=== PATIENT | male | born 1980 | race Caucasian/White ===

== ENCOUNTER 2016-08-18 22:50 | Emergency (ER) | payer SELFPAY ==
[~2016-08-18] VITALS: Ht 200.7 cm; Wt 179.5 kg
[~2016-08-18 22:50] MED LIST: CEPH500C3 PO; LORT5TAB PO; Z.0.NO CURRENT MEDS
[2016-08-18 23:31] VITALS: BP 152/100; PULSE 110; RESP 18; TEMP 98.7; O2SAT 94
[2016-08-18 23:37] VITALS: BP 152/100; PULSE 110; RESP 18; TEMP 99.9; O2SAT 94
[2016-08-19] MEDS ORDERED: CLIN1CAP5 PO (01:42)
--- NOTE | 2016-08-19 01:43 | PD ---
HPI Chief Complaint: Bite or Sting Time Seen by Provider: 01:39 Travel History International Travel<30 days: No Contact w/Intl Traveler<30days: No Traveled to known affect area: No History of Present Illness HPI 36-year-old male presents to the emergency department for redness and swelling to the ulnar dorsal aspect of his right hand. Patient has had some swelling of the digits as well. Area of redness and swelling is localized over to the back of his hand and has noticed this since Thursday with worsening today. No ascending erythema no axillary tenderness or lymphadenopathy. Patient denies any fever or chills. Patient is not diabetic. Patient is unsure if he sustained a spider bite or bug bite but denies any known injury or contusion. Patient denies any puncture wound. Patient has intact range of motion of wrist digits. PFSH Past Medical History Narrative Medical Head injury 2011 immunizations current tobacco use; nursing notes reviewed Diminished Hearing: No Immunizations Current: Yes Tetanus Vaccination: Unknown Influenza Vaccination: No Social History Alcohol Use: Yes Tobacco Use: Yes Substance Use: No Allergies-Medications (Allergen,Severity, Reaction): Coded Allergies: No Known Allergies (Unverified , 12/10/11) Reported Meds & Prescriptions Reported Meds & Active Scripts Active Clindamycin (Clindamycin HCl) 150 Mg Cap 300 Mg PO Q6H 7 Days Review of Systems Except as stated in HPI: all other systems reviewed are Neg General / Constitutional: No: Fever, Chills Cardiovascular: No: Chest Pain or Discomfort Respiratory: No: Shortness of Breath Gastrointestinal: No: Abdominal Pain Genitourinary: No: Flank Pain Musculoskeletal: Positive: Pain Skin: Positive Rash (right hand), Positive Lumps ( right hand) Neurologic: No: Weakness ( right hand) Psychiatric: No: Anxiety Hematologic/Lymphatic: No: Lymph Node Enlargement Physical Exam Narrative GENERAL: Well-developed well-nourished male in no acute distress no respiratory distress SKIN: Warm and dry. HEAD: Normocephalic. EYES: No scleral icterus. No injection or drainage. NECK: Supple, trachea midline. No JVD or lymphadenopathy. CARDIOVASCULAR: Regular rate and rhythm without murmurs, gallops, or rubs. RESPIRATORY: Breath sounds equal bilaterally. No accessory muscle use. GASTROINTESTINAL: Abdomen soft, non-tender, nondistended. MUSCULOSKELETAL: No cyanosis, or edema. Attention right hand dorsal aspect area of induration and erythema tenderness 5 cm x 5 cm without fluctuance central pustule no ascending erythema or axillary lymphadenopathy distally digits are neurovascular tendon intact BACK: Nontender without obvious deformity. No CVA tenderness. Data Data Last Documented VS Vital Signs Date Time Temp Pulse Resp B/P Pulse Ox O2 Delivery O2 Flow Rate FiO2 08/19/16 02:02 74 18 140/73 98 Room Air 08/18/16 23:37 99.9 Orders Ibuprofen (Motrin) (08/19/16 01:45) Clindamycin Inj (Cleocin Inj) (08/19/16 01:45) [facility] Medical Decision Making Medical Screen Exam Complete: Yes Emergency Medical Condition: Yes Medical Record Reviewed: Yes Differential Diagnosis cellulitis, abscess, tenosynovitis Narrative Course IV access obtained patient administered IV clindamycin and Toradol Patient with good response to Toradol for symptom relief; patient stable for outpatient oral antibiotics with close follow-up in the next 1-2 days to reassess area for possible development of abscess; no evidence for abscess formation at this time. Patient stable for outpatient management Diagnosis Primary Impression: Cellulitis of hand excluding fingers Additional Impressions: Abscess Abscess, hand Referrals: Hand Surgeon 2 days Patient Instructions: General Instructions Departure Forms: Tests/Procedures, Work Release Special Instructions: No work times one day Additional Instructions: Apply warm compresses Take acetaminophen/Tylenol every 4 hours as needed for fever 100.4F or greater Take ibuprofen as prescribed as needed for pain associated inflammation or for fever 100.4F or greater Complete course of antibiotic as prescribed No work times one day Return to the emergency department for fever pain increased swelling or any concerns Follow-up with primary care provider or hand surgeon 2 days; call in a.m. to schedule follow-up appointment Med/Other Pt SpecificInfo: Prescription(s) given Scripts Clindamycin 150 Mg Qir118 Mg PO Q6H 7 Days Ref 0 Prov:Cassia Avilez MD 08/19/16 Disposition: 01 DISCHARGE HOME Condition: Stable Cassia Avilez MD Aug 19, 2016 01:43
[2016-08-19] MEDS ORDERED: IBUPROFEN 800 MG TAB PO ONE (01:45)
[2016-08-19] MEDS ORDERED: CLINDAMYCIN PHOS 600 MG/4 ML VIAL IM ONE (01:45)
[2016-08-19 02:02] VITALS: BP 140/73; PULSE 74; RESP 18; O2SAT 98
== END 2016-08-19 02:17 | disposition home or self-care (01) ==
LOC: PHED 22:50
DX: L03.113 Cellulitis of right upper limb (principal); L02.511 Cutaneous abscess of right hand; Z72.0 Tobacco use
CPT/HCPCS: 96372

== ENCOUNTER 2016-08-20 21:44 | Emergency (ER) | payer SELFPAY ==
[~2016-08-20] VITALS: Ht 200.7 cm; Wt 181.0 kg
[~2016-08-20 21:44] MED LIST changes: -CEPH500C3 PO; +CLIN1CAP5 PO; -LORT5TAB PO; -Z.0.NO CURRENT MEDS
[2016-08-20 23:56] VITALS: BP 154/103; PULSE 88; RESP 18; TEMP 98.1; O2SAT 95
[2016-08-21] MEDS ORDERED: LIDOCAINE 1%/EPINEPHrine 1:100,000 SOLN 20 ML VIAL INFIL ONE (04:15)
[2016-08-21] MEDS ORDERED: BACT800T5 PO (04:43)
--- NOTE | 2016-08-21 04:43 | PD ---
HPI Chief Complaint: Bite or Sting Time Seen by Provider: 04:14 Travel History International Travel<30 days: No Contact w/Intl Traveler<30days: No Traveled to known affect area: No History of Present Illness HPI The patient is a 36-year-old right-hand dominant male that was bitten by an unknown insect/arthropod 6 days ago. It got infected and the patient was put on clindamycin for 2 days now. The redness has gotten larger. He comes in for recheck. His last tetanus shot was between 5 and 10 years. PFS Past Medical History Diminished Hearing: No Immunizations Current: No Tetanus Vaccination: < 5 Years Influenza Vaccination: No Past Surgical History Surgical History: No Previous Surgery Social History Alcohol Use: Yes (SOCIAL) Tobacco Use: Yes (1 PPD) Substance Use: No Allergies-Medications (Allergen,Severity, Reaction): Coded Allergies: No Known Allergies (Unverified , 08/21/16) Reported Meds & Prescriptions Reported Meds & Active Scripts Active Clindamycin (Clindamycin HCl) 150 Mg Cap 300 Mg PO Q6H 7 Days Review of Systems Except as stated in HPI: all other systems reviewed are Neg Physical Exam Narrative GENERAL: Well-nourished, well-developed patient in slight apparent distress with his right hand discomfort. His vital signs show blood pressure 150 4/07/08 but otherwise normal. SKIN: Warm and dry. There is a 1.5 cm abscess along with a 3 cm diameter cellulitic area surrounding the abscess on the ulnar dorsal aspect of the right hand. No lymphadenitis is noted. HEAD: Normocephalic. EYES: No scleral icterus. No injection or drainage. NECK: Supple, trachea midline. No JVD or lymphadenopathy. CARDIOVASCULAR: Regular rate and rhythm without murmurs, gallops, or rubs. RESPIRATORY: Breath sounds equal bilaterally. No accessory muscle use. GASTROINTESTINAL: Abdomen soft, non-tender, nondistended. MUSCULOSKELETAL: No cyanosis, or edema. BACK: Nontender without obvious deformity. No CVA tenderness. Data Data Last Documented VS Vital Signs Date Time Temp Pulse Resp B/P Pulse Ox O2 Delivery O2 Flow Rate FiO2 08/21/16 03:55 18 08/20/16 23:56 98.1 88 154/103 95 Orders Wound Culture And Gram Stain (08/21/16 04:14) Lidocai-Epi 1%-1:100,000 Inj (Xylocaine- (08/21/16 04:15) MDM Medical Decision Making Medical Screen Exam Complete: Yes Emergency Medical Condition: Yes Medical Record Reviewed: Yes Differential Diagnosis Abscess right hand, cellulitis right hand Narrative Course The patient has both an abscess and cellulitis of the right hand. It was incised and drained and a fair amount of pus was recovered. Procedures Procedure Narrative The dorsum of the right hand was prepped with Betadine. Under sterile technique , the area of the abscess/cellulitis was infiltrated with lidocaine with epinephrine in field block fashion. A #11 blade was used to incise superficially through the skin and blunt dissection was used to incise into a abscess cavity directly below the incision. A fair amount of pus was recovered. This pus was cultured. The wound cavity was cleaned with peroxide moistened Q-tips. The patient tolerated the procedure well. Diagnosis Primary Impression: Abscess, hand Additional Impression: Cellulitis of right hand Additional Instructions: As we discussed, elevate the hand above your heart. Use a heating pad on as well as setting an interpose a towel between your skin and the pad. Follow-up with a hand surgeon. If worse, you are welcome to return to the emergency department anytime. Med/Other Pt SpecificInfo: Prescription(s) given Scripts Sulfamethoxazole-Trimethoprim (Bactrim DS)800-160 Mg Tab1 Tab PO BID #20 TAB Ref 0 Prov:Jaya Blancas MD 08/21/16 Disposition: 01 DISCHARGE HOME Condition: Stable Jaya Blancas MD Aug 21, 2016 04:43
[2016-08-21] MEDS ORDERED: SULFAMETHOXAZOLE-TRIMETHOPRIM DS 800-160 MG TAB PO ONE (04:45)
[2016-08-21 05:48] VITALS: BP 143/88
== END 2016-08-21 05:35 | disposition home or self-care (01) ==
LOC: PHED 21:44 → PHEFT 08-21 05:35
DX: L02.511 Cutaneous abscess of right hand (principal); L03.113 Cellulitis of right upper limb; B95.62 Methicillin resistant Staphylococcus aureus infection as the cause of diseases classified elsewhere
CPT/HCPCS: 10060; 86403; 87070; 87186